=== PATIENT | female | born 1995 | race Caucasian/White ===

== ENCOUNTER 2024-04-08 13:15 | Outpatient (OUT) | payer BC, SELFPAY ==
[2024-04-08 15:24] LABS: HCG Quantitative 72391 mIU/mL
== END 2024-04-08 13:16 | disposition home or self-care (01) ==
DX: O20.9 Hemorrhage in early pregnancy, unspecified (principal)
CPT/HCPCS: 84702

== ENCOUNTER 2024-04-10 11:04 | Outpatient (OUT) | payer BC, SELFPAY ==
[2024-04-10 12:43] LABS: HCG Quantitative 82854 mIU/mL
== END 2024-04-10 11:05 | disposition home or self-care (01) ==
LOC: LAB 11:06
PROVIDERS: Visit Provider Obstetrics & Gynecology
DX: O20.9 Hemorrhage in early pregnancy, unspecified (principal)
CPT/HCPCS: 36415; 84702

== ENCOUNTER 2024-08-25 07:43 | Outpatient (OUT) | payer BC, SELFPAY ==
[2024-08-25 08:55] LABS: Hematocrit 33.2 % (36.0-48.0); Hemoglobin 11.1 g/dL (12.0-16.0)
[2024-08-25 09:16] LABS: Glucose 1 Hour 123 mg/dL (<130)
== END 2024-08-25 07:44 | disposition home or self-care (01) ==
LOC: LAB 07:44
PROVIDERS: Visit Provider Nurse Practitioner Women's Health
DX: O26.92 Pregnancy related conditions, unspecified, second trimester (principal)
CPT/HCPCS: 36415; 82950; 85014; 85018

== ENCOUNTER 2024-10-26 14:20 | Outpatient (OUT) | payer BC, SELFPAY ==
[2024-10-26 15:04] LABS: Basophils Percent Auto 0.2 % (0.2-2.0); Eosinophils Percent Auto 0.3 % (0.9-7.0); Hematocrit 31.3 % (36.0-48.0); Hemoglobin 10.8 g/dL (12.0-16.0); Immature Granulocytes Abs Auto 0.09 10^3/uL (0.00-0.03); Immature Granulocytes Pct Auto 0.8 % (0.0-0.5); Lymphocytes Absolute Auto 1.7 10^3/uL (1.2-3.8); Mean Corpuscular HGB Conc 34.5 g/dL (29.9-35.2); Mean Corpuscular Hemoglobin 28.6 pg (26.7-34.0); Mean Corpuscular Volume 82.8 fL (81.0-99.0); Mean Platelet Volume 11.9 fL (9.5-13.5); Monocytes Absolute Auto 0.8 10^3/uL (0.3-0.8); Monocytes Percent Auto 7.7 % (1.7-12.0); Neutrophils Absolute Auto 8.1 10^3/uL (1.4-6.5); Platelet Count 160 10^3/uL (150-450); Red Blood Count 3.78 10^6/uL (4.20-5.40); Red Cell Distribution Width 13.4 % (11.0-15.0); White Blood Count 10.8 10^3/uL (4.0-11.0)
[2024-10-26 15:15] LABS: Alanine Aminotransferase 18 U/L (14-59); Albumin Globulin Ratio 0.8; Albumin Level 2.8 g/dL (3.4-5.0); Alkaline Phosphatase 135 U/L (46-116); Anion Gap 11.3; Aspartate Amino Transferase 16 U/L (15-37); BUN Creatinine Ratio 10.1; Bilirubin Total 0.3 mg/dL (0.2-1.0); Calcium 8.6 mg/dL (8.5-10.1); Carbon Dioxide 26.5 mmol/L (21.0-32.0); Chloride 103 mmol/L (98-107); Estimated GFR (African America >60 (>=60 mL/min/1.73m^2); Estimated GFR (Non-African Ame >60 (>=60 mL/min/1.73m^2); Globulin 3.4 g/dL; Glucose 99 mg/dL (74-106); Potassium 3.8 mmol/L (3.5-5.1); Sodium 137 mmol/L (136-145); Total Protein 6.2 g/dL (6.4-8.2)
== END 2024-10-26 14:21 | disposition home or self-care (01) ==
LOC: LAB 14:21
PROVIDERS: Visit Provider Obstetrics & Gynecology
DX: Z34.83 Encounter for supervision of other normal pregnancy, third trimester (principal); D58.2 Other hemoglobinopathies; R42 Dizziness and giddiness
CPT/HCPCS: 36415; 80053; 85025

== ENCOUNTER 2025-04-30 13:53 | Emergency (ER) | payer BC, SELFPAY ==
[2025-04-30 13:57] VITALS: BP 115/61; PULSE 69; TEMP 37.3; O2SAT 98; BMI 22.6
--- OUTSIDE RECORDS SUMMARY | 2025-04-30 14:00 | XMS_ITS | Encounter Summary ---
Author Organization [facility] Address [facility] [place] [address] Care Team Providers Care Pumpman Name Role Phone Herminia Macdonald MD Primary Care Provider Simi Coppola JOURNALISM TEACHER.GAS PUMPING STATION OPERATOR Unavailable Lyndsey Bryson JOURNALISM TEACHER.GAS PUMPING STATION OPERATOR Unavailable [phone] Disha NeumannC Unavailable Verna Jean JOURNALISM TEACHER.GAS PUMPING STATION OPERATOR Unavailable London Corey-C Unavailable Bernadette Valenzuela JOURNALISM TEACHER.GAS PUMPING STATION OPERATOR Unavailable Bernadette Valenzuela APRN.GAS PUMPING STATION OPERATOR Unavailable [phone] Source Comments In the event this information is protected by the Federal Confidentiality of Alcohol and Drug AbusePatient Records regulations: The Federal rules restrict any use of the information to criminally investigate or prosecute any alcohol or drug abuse patient.[facility] Encounter Details Date Type Department Care Team (Late st Contact Info) Description 01/19/2022 Get Medical Advice Family Medicine [facility] [place] [address] Herminia Macdonald MD [address] [place] [address] Sertraline Social History Tobacco Use Types Packs/Day Years Used Date Smoking Tobacco: Never Smokeless Tobacco: Never Alcohol Use Standard Drinks/Week Comments Yes 0 (1 standard drink = 0.6 oz pur e alcohol) social, 1x/month Social Connection and Isolat ion Panel [NHANES] Answer Date Recorded In a typical week, how many times do you talk on the phone with family, friends, or neighbors? More than three times a week 10/07/2020 How often do you get togethe r with friends or relatives? Once a week 10/07/2020 How often do you attend chur ch or buddhism services? More than 4 times per year 10/07/2020 Do you belong to any clubs o r organizations such as presybeterian groups, unions, fraternal or athletic groups, or school groups? No 10/07/2020 How often do you attend meet ings of the clubs or organizations you belong to? Never 10/07/2020 Are you , , di vorced, , never , or living with a partner? 10/07/2020 [facility] Occupat ional Health - Occupational Stress Questionnaire Answer Date Recorded Do you feel stress - tense, restless, nervous, or anxious, or unable to sleep at night because your mind is troubled all the time - these days? Only a little 10/07/2020 Exercise Vital Sign Answer Date Recorde d On average, how many days pe r week do you engage in moderate to strenuous exercise (like a brisk walk)? 4 days 10/07/2020 On average, how many minutes do you engage in exercise at this level? 30 min 10/07/2020 Housing Stability Vital Sign Answer Doug e Recorded In the last 12 months, was t here a time when you were not able to pay the mortgage or rent on time? No 09/06/2021 In the last 12 months, how many places have you lived? 1 09/06/2021 In the last 12 months, was t here a time when you did not have a steady place to sleep or slept in a care home (including now)? No 09/06/2021 Area Deprivation Index Answer Date Rom rded National Score (1-100), lower number is lower ri sk Not on file 08/29/2020 State Score (1-10), lower number is lower risk N ot on file 08/29/2020 Data from: https://www.neighborhoodatlas.medicine.[facility]/. Last address used for calculation Not on file 08/29/2020 Comments No Sex and Gender Information Value Date Recorded Sex Assigned at Not on file Legal Sex Female 9:14 AM EST Gender Identity Not on file Sexual Orientation Not on file Occupation Industry Job Start Date Job End Date student Not on file Not on file Not on file Exercise- walk, gym- weights/elliptical Not on file N ot on file Not on file documented as of this encounter Functional Status * Are you deaf or do you have serious difficulty hearing? Answer Date of Assessment Author No 10/06/2015 10:45 AM Disha Newton APRN.GAS PUMPING STATION OPERATOR * Are you blind or do you have serious difficulty seeing, even when wearing glasses? Answer Date of Assessment Author No 10/06/2015 10:45 AM Disha Newton APRN.GAS PUMPING STATION OPERATOR * Do you have serious difficulty walking or climbing stairs? Answer Date of Assessment Author No 10/06/2015 10:45 AM Disha Newton APRN.GAS PUMPING STATION OPERATOR * Do you have difficulty dressing or bathing? Answer Date of Assessment Author No 10/06/2015 10:45 AM Disha Newton APRN.GAS PUMPING STATION OPERATOR * Because of a physical, mental, or emotional condition, do you have difficulty doing errands alone such as visiting a doctor's office or shopping? Answer Date of Assessment Author No 10/06/2015 10:45 AM Disha Newton APRN.GAS PUMPING STATION OPERATOR documented as of this encounter Mental Status * Because of a physical, mental, or emotional condition, do you have serious difficulty concentrating, remembering, or making decisions? Answer Entry Date Author No 10/06/2015 10:45 AM Disha Newton APRN.GAS PUMPING STATION OPERATOR documented in this encounter Plan of Treatment Not on file documented as of this encounter Visit Diagnoses Not on filedocumented in this encounter Care Teams Pumpman Relationship Specialty Start Date End Date Herminia Macdonald MD [address] [place] [address] PCP - General Family Medicine 09/08/21 Simi Coppola, JOURNALISM TEACHER.GAS PUMPING STATION OPERATOR [address] [place] [address] [facility] 08/30/24 09/24/24 Lyndsey Bryson, JOURNALISM TEACHER.GAS PUMPING STATION OPERATOR [address] [place] [address] [facility] 08/30/24 09/24/24 Disha Neumann PA-C [address] [place] [address] [facility] 08/30/24 09/24/24 Verna Jean, JOURNALISM TEACHER.GAS PUMPING STATION OPERATOR [address] [place] [address] [facility] 08/30/24 09/24/24 London Corey PA-C [address] [place] [address] [facility] 08/30/24 09/24/24 Bernadette Valenzuela, JOURNALISM TEACHER.GAS PUMPING STATION OPERATOR [address] [place] [address] [facility] 09/25/24 12/03/24 Bernadette Valenzuela, JOURNALISM TEACHER.GAS PUMPING STATION OPERATOR [address] [place] [address] [facility] 12/03/24 documented as of this encounter
--- OUTSIDE RECORDS SUMMARY | 2025-04-30 14:00 | XMS_ITS | Clinical Summary ---
Author Organization [facility] Address [address] [place] [address] Care Team Providers Care Real Estate Loan Processor Name Role Phone Unallocated, Noms Provider MD Primary Care Provi dom Allergies Active Allergy Reactions Criticality Noted Date Comments Cefaclor Unknown 02/06/2023 Nickel Unknown 04/14/2014 Medications GENERIC EXTERNAL MEDICATION Take 1 tablet by mouth Daily NatureMaid PNV folic acid/DHA 4 Active Active Problems Problem Noted Date Diagnosed Date GERD (gastroesophageal reflux disease) 3 Overview (02/12/2023): 02/2019: Takes Prevacid OTC as needed KIA (generalized anxiety disorder) 08/06/2019 Overview (02/12/2023): 09/2020: much improved on zoloft 100mg. Using Calm estephanie. School and home life are improved 08/2020: worsening sx, incr to zoloft 100mg 05/12: zoloft 50mg still working well 09/2019: significant improvement on zoloft 50mg, doing really well. Continue current dose. Hydroxyzine did not help 07/2019: Started Zoloft 50 mg. Continue hydroxyzine 25 mg as needed Resolved Problems Problem Noted Date Diagnosed Date Resolved Date Female infertility 09/08/2021 3 Family History Medical History Relation Name Comments Diabetes Father's Brother Breast cancer Mother's Sister Pancreatic cancer Paternal Grandmother No Known Problems Sister Relation Name Status Comments Father Alive Father's Brother Mother Alive Mother's Sister Paternal Grandmother Sister 1 sister Son Alive Social History Tobacco Use Types Packs/Day Years Used Date Smoking Tobacco: Never Smokeless Tobacco: Never Tobacco Cessation:Counseling Given: No Alcohol Use Standard Drinks/Week Comments Not Currently 0 (1 standard drink = 0.6 oz pure alcohol) caffeine intake : 1-2 cups per day ; coffee Humiliation, Afraid, Rape, and Kick questionnair e Answer Date Recorded Within the last year, have y ou been afraid of your partner or ex-partner? No 04/14/2024 Within the last year, have y ou been humiliated or emotionally abused in other ways by your partner or ex-partner? No Within the last year, have y ou been kicked, hit, slapped, or otherwise physically hurt by your partner or ex-partner? No 04/14/2024 Within the last year, have y ou been raped or forced to have any kind of sexual activity by your partner or ex-partner? No 04/14/2024 Social Connection and Isolat ion Panel [NHANES] Answer Date Recorded In a typical week, how many times do you talk on the phone with family, friends, or neighbors? More than three times a week 04/14/2024 How often do you get togethe r with friends or relatives? More than three times a week 04/14/2024 How often do you attend chur or jew services? More than 4 times per year 04/14/2024 Do you belong to any clubs o r organizations such as scientology groups, unions, fraternal or athletic groups, or school groups? Yes 04/14/2024 How often do you attend meet ings of the clubs or organizations you belong to? 1 to 4 times per year 04/14/2024 Are you , , di vorced, , never , or living with a partner? 04/14/2024 AUDIT-C Answer Date Recorded Q1: How often do you have a drink containing alc ohol? Monthly or less 04/14/2024 Q2: How many drinks containi ng alcohol do you have on a typical day when you are drinking? 1 or 2 04/14/2024 Q3: How often do you have si x or more drinks on one occasion? Never 04/14/2024 Overall Financial Resource Strain (CARDIA) Answe r Date Recorded How hard is it for you to pa y for the very basics like food, housing, medical care, and heating? Not hard at all 04/14/2024 PHQ-2 Answer Date Recorded Patient Health Questionnaire-2 Score 0 09/28/2024 [facility] of Occupat ional Health - Occupational Stress Questionnaire Answer Date Recorded Do you feel stress - tense, restless, nervous, or anxious, or unable to sleep at night because your mind is troubled all the time - these days? Only a little 04/14/2024 Exercise Vital Sign Answer Date Recorde d On average, how many days pe r week do you engage in moderate to strenuous exercise (like a brisk walk)? 7 days 04/14/2024 On average, how many minutes do you engage in exercise at this level? 60 min 04/14/2024 Hunger Vital Sign Answer Date Recorded Within the past 12 months, y ou worried that your food would run out before you got the money to buy more. Never true 04/14/20 24 Within the past 12 months, t he food you bought just didn't last and you didn't have money to get more. Never true 04/14/2024 PRAPARE - Transportation Answer Date Re corded In the past 12 months, has l ack of transportation kept you from medical appointments or from getting medications? No 03/24 In the past 12 months, has l ack of transportation kept you from meetings, work, or from getting things needed for daily living? No 04/14/2024 [place] Depression Scale Answer Date Recorded [place] Depression Scale Total 13 02/12/2023 The thought of harming myself has occurred to me . Never 02/12/2023 Housing Stability Vital Sign Answer Doug e Recorded In the last 12 months, was t here a time when you were not able to pay the mortgage or rent on time? No 04/14/2024 Number of Times Moved in the Last Year Not on fi le 04/14/2024 At any time in the past 12 m [facility], were you homeless or living in a usp (including now)? No 04/14/2024 Education Answer Date Recorded What is the highest level of school you have completed or the highest degree you have received? 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 Not on file Not on f ile Last Filed Vital Signs Vital Sign Reading Time Taken Comments Blood Pressure 110/70 01/05/2025 1:38 PM EDT Pulse - - Temperature - - Respiratory Rate - - Oxygen Saturation - - Inhaled Oxygen Concentration - - Weight 68 kg (150 lb) 01/05/2025 1:38 PM EDT Height 167.6 cm (5' 6 ) 01/17/2022 12:00 PM EDT Body Mass Index 24.21 01/17/2022 12:00 PM EDT Plan of Treatment Upcoming Encounters Date Type Department Care Team (Late st Contact Info) Description 07/13/2025 1:15 PM EDT Office Visit MARCIO YOUNG [address] ROMAN D [address] [phone] Rebecca Workman DO [address] [phone] Health Maintenance Due Date Last Done Comments Influenza Vaccine (#1) 2025 , 04/27/2021, 06/23/2020, Additional history exists Pap Smear 01/06/2028 01/05/2025, 07/12/2023 Cervical Cancer Screening 01/05/2030 HPV/Cotest 01/05/2030 01/05/2025, 06/24, 06/19/2022, Additional history exists Goals Goal Patient Goal Type Associated Problems Recent Progress Patient-Stated? Author Reminders Care Plan OB Reminders No Open Scheduling, Background Procedures Procedure Name Priority Date/Time Associated Diagnosis Comments THINPREP TIS PAP RFX HPV Routine 01/05/2025 12:00 AM EDT Screening for malignant neoplasm of cervix from Last 3 Months or Most Recently Relevant to Health Maintenance Results * THINPREP TIS PAP RFX HPV (01/05/2025 12:00 AM EDT) CLINICAL INFORMATION [facility] Comment:None given LMP [facility] Comment:NONE GIVEN PREV. PAP [facility] Comment:NONE GIVEN PREV. BX [facility] Comment:NONE GIVEN SOURCE [facility] Comment:None given STATEMENT OF ADEQUACY [facility] Comment: Satisfactory for evaluation. Endocervical/transformation zone component present. INTERPRETATION/RESUL T [facility] Comment: Cytology Results: Negative for intraepithelial lesion or malignancy. COMMENT [facility] Comment: This Pap test has been evaluated with computer assisted technology. CALENDER LET OFF HELPER [facility] Comment: JT PADILLA(ASCP) CT screening location: [facility], [address] [place] [address]. (ALWAYS MESSAGE) [facility] Comment: EXPLANATORY NOTE: The Pap is a screening test for cervical cancer. It is not a diagnostic test and is subject to false negative and false positive results. It is most reliable when a satisfactory sample, regularly obtained, is submitted with relevant clinical findings and history, and when the Pap result is evaluated along with historic and current clinical information. Swab 01/05/2025 01/06/2025 3:4 6 AM EDT Narrative Resulting Agency Comment Performing Organization Information Site ID: [id number] Name: [facility] Address: [address] [place] [address], [address] [place] [phone] Director: Rei Mccormack MD us Rebecca Workmna DO LAB CYTOLOGY ORDERABLES Fi nal Result [facility] from Last 3 Months or Most Recently Relevant to Health Maintenance Additional Health Concerns Active Problems Noted Date Diagnosed Date OB Reminders 04/15/2024 Insurance BCBS Care Teams Real Estate Loan Processor Relationship Specialty Start Date End Date Unallocated, Noms Provider, [address] [place], [place] [address] PCP - General 02/12/23
--- OUTSIDE RECORDS SUMMARY | 2025-04-30 14:00 | XMS_ITS | Encounter Summary ---
Author Organization [facility] Address [facility] [place] [address] Care Team Providers Care Reprint Sorter Name Role Phone Stephenie Castellon MD Unavailable [phone] Herminia Macdonald MD Primary Care Provider Simi Coppola ARTIFICIAL PEARL MAKER.CONCRETE PIPE MAKING MACHINE OPERATOR Unavailable Lyndsey Bryson ARTIFICIAL PEARL MAKER.CONCRETE PIPE MAKING MACHINE OPERATOR Unavailable [phone] Disha Neumann PA-C Unavailable Verna Jean ARTIFICIAL PEARL MAKER.CONCRETE PIPE MAKING MACHINE OPERATOR Unavailable London Corey PA-C Unavailable Bernadette Valenzuela ARTIFICIAL PEARL MAKER.CONCRETE PIPE MAKING MACHINE OPERATOR Unavailable Bernadette Valenzuela ARTIFICIAL PEARL MAKER.CONCRETE PIPE MAKING MACHINE OPERATOR Unavailable Source Comments In the event this information is protected by the Federal Confidentiality of Alcohol and Drug AbusePatient Records regulations: The Federal rules restrict any use of the information to criminally investigate or prosecute any alcohol or drug abuse patient.[facility] Encounter Details Date Type Department Care Team (Late st Contact Info) Description 10/05/2021 Patient Msg Reproductive Endocrinology Infertility [address] [place] [address] Fabiola Spear MD [address] [place] [address] Next Steps Social History Tobacco Use Types Packs/Day Years [...] 10/07/2020 How often do you attend chur or moravian services? More than 4 times per year 10/07/2020 Do you belong to any clubs o r organizations such as pentecostal groups, unions, fraternal or athletic groups, or school groups? No 10/07/2020 How often do you attend meet ings of the clubs or organizations you belong to? Never 10/07/2020 Are you , , di vorced, , never , or living with a partner? 10/07/2020 [facility] of Occupat ional Health - Occupational [...] place to sleep or slept in a intermediate (including now)? No 09/06/2021 Area Deprivation Index Answer Date Rom rded National Score (1-100), lower number is lower ri sk Not on file 08/29/2020 State Score (1-10), lower number is lower risk N ot on file 08/29/2020 Data from: https://www.neighborhoodatlas.medicine.[facility].edu/. Last address used for calculation Not on [...] N ot on file Not on file COVID-19 Exposure Response Date Recorded In the last month, have you been in contact with someone who was confirmed or suspected to have Coronavirus / COVID-19? No / Unsure 10/05/2021 8:50 AM EST documented as of this encounter Functional Status * Are you deaf or do you have serious difficulty hearing? Answer Date of Assessment Author No 10/06/2015 10:45 AM EST Disha Magallon APRN.CONCRETE PIPE MAKING MACHINE OPERATOR * Are you blind or do you have serious difficulty seeing, even when wearing glasses? Answer Date of Assessment Author No 10/06/2015 10:45 AM Disha Newton APRN.CONCRETE PIPE MAKING MACHINE OPERATOR * Do you have serious difficulty walking or climbing stairs? Answer Date of Assessment Author No 10/06/2015 10:45 AM EST Disha Magallon APRN.CONCRETE PIPE MAKING MACHINE OPERATOR * Do you have difficulty dressing or bathing? Answer Date of Assessment Author No 10/06/2015 10:45 AM EST Disha Magallon APRN.CONCRETE PIPE MAKING MACHINE OPERATOR * Because of a physical, mental, or emotional condition, do you have difficulty doing errands alone such as visiting a doctor's office or shopping? Answer Date of Assessment Author No 10/06/2015 10:45 AM EST Disha Magallon APRN.CONCRETE PIPE MAKING MACHINE OPERATOR documented as of this encounter Mental Status * Because of a physical, mental, or emotional condition, do you have serious difficulty concentrating, remembering, or making decisions? Answer Entry Date Author No 10/06/2015 10:45 AM Disha Newton APRN.CONCRETE PIPE MAKING MACHINE OPERATOR documented in this encounter Plan of Treatment Not on file documented as of this encounter Visit Diagnoses Not on filedocumented in this encounter Care Teams Reprint Sorter Relationship Specialty Start Date End Date Herminia Macdonald MD [address] [place] [address] PCP - General Family Medicine 09/08/21 Stephenie Castellon MD PCP Resident Family Medicine 03/22/21 01/15/22 Simi Coppola, ARTIFICIAL PEARL MAKER.CONCRETE PIPE MAKING MACHINE OPERATOR [address] [place] [address] Notch Machine Operator Family [facility] 08/30/24 09/24/24 Lyndsey Bryson, ARTIFICIAL PEARL MAKER.CONCRETE PIPE MAKING MACHINE OPERATOR [address] [place] [address] Notch Machine Operator Family [facility] 08/30/24 09/24/24 Disha Neumann PA-C [address] [place] [address] Notch Machine Operator Family [facility] 08/30/24 09/24/24 Verna Jean, ARTIFICIAL PEARL MAKER.CONCRETE PIPE MAKING MACHINE OPERATOR [address] [place] [address] [facility] 08/30/24 09/24/24 London Corey PA-C [address] [place] [address] Notch Machine Operator [facility] 08/30/24 09/24/24 Bernadette Valenzuela APRN.CONCRETE PIPE MAKING MACHINE OPERATOR [address] [place] [address] Notch Machine Operator 09/25/24 12/03/24 Bernadette Valenzuela APRN.CONCRETE PIPE MAKING MACHINE OPERATOR [address] [place] [address] Notch Machine Operator Family Medicine 12/03/24 documented as of this encounter
--- OUTSIDE RECORDS SUMMARY | 2025-04-30 14:00 | XMS_ITS | Encounter Summary ---
Author Organization [facility] Address [facility] [place] [address] Care Team Providers Care Director Of Admissions Name Role Phone Stephenie Castellon MD Unavailable [phone] Herminia Macdonald MD Primary Care Provider Simi Coppola NEWS CORRESPONDENT.UNIT ASSISTANT Unavailable Lyndsey Bryson NEWS CORRESPONDENT.UNIT ASSISTANT Unavailable [phone] Disha Neumann PA-C Unavailable Verna Jean NEWS CORRESPONDENT.UNIT ASSISTANT Unavailable London Corey PA-C Unavailable Bernadette Valenzuela NEWS CORRESPONDENT.UNIT ASSISTANT Unavailable Bernadette Valenzuela NEWS CORRESPONDENT.UNIT ASSISTANT Unavailable Source Comments In the event this information is protected by the Federal Confidentiality of Alcohol and Drug AbusePatient Records regulations: The Federal rules restrict any use of the information to criminally investigate or prosecute any alcohol or drug abuse patient.[facility] Encounter Details Date Type Department Care Team (Late st Contact Info) Description 11/01/2021 [facility] Get Medical Advice Reproductive Endocrinology Infertility [address] [place] [address] Fabiola Spear MD [address] [place] [address] Social History Tobacco Use Types Packs/Day Years [...] How often do you attend chur or jewish services? More than 4 times per year 10/07/2020 Do you belong to any clubs o r organizations such as samaritan groups, unions, fraternal or athletic groups, or school groups? No 10/07/2020 How often do you attend meet ings of the clubs or organizations you belong to? Never 10/07/2020 Are you , , di vorced, , never , or living with a partner? 10/07/2020 [facility] - Occupational [...] place to sleep or slept in a custodial (including now)? No 09/06/2021 Area Deprivation Index Answer Date Rom rded National Score (1-100), lower number is lower ri sk Not on file 08/29/2020 State Score (1-10), lower number is lower risk N ot on file 08/29/2020 Data from: https://www.neighborhoodatlas.medicine.[facility].edu/. Last address used for calculation Not on [...] No 10/06/2015 10:45 AM EST Disha Magallon APRN.UNIT ASSISTANT * Are you blind or do you have serious difficulty seeing, even when wearing glasses? Answer Date of Assessment Author No 10/06/2015 10:45 AM Disha Newton APRN.UNIT ASSISTANT * Do you have serious difficulty walking or climbing stairs? Answer Date of Assessment Author No 10/06/2015 10:45 AM EST Disha Magallon APRN.UNIT ASSISTANT * Do you have difficulty dressing or bathing? Answer Date of Assessment Author No 10/06/2015 10:45 AM EST Disha Magallon APRN.UNIT ASSISTANT * Because of a physical, mental, or emotional condition, do you have difficulty doing errands alone such as visiting a doctor's office or shopping? Answer Date of Assessment Author No 10/06/2015 10:45 AM EST Disha Magallon APRN.UNIT ASSISTANT documented as of this encounter Mental Status * Because of a physical, mental, or emotional condition, do you have serious difficulty concentrating, remembering, or making decisions? Answer Entry Date Author No 10/06/2015 10:45 AM EST Disha Magallon APRN.UNIT ASSISTANT documented in this encounter Miscellaneous Notes * Telephone Encounter - Dorie Ramos RN - 11/01/2021 8:08 AM EST See phone encounter Dorie Ramos RN November 01, 2021 8:08 AM documented in this encounter Plan of Treatment Not on file documented as of this encounter Visit Diagnoses Not on filedocumented in this encounter Care Teams Director Of Admissions Relationship Specialty Start Date End Date Herminia Macdonald MD [address] [place] [address] PCP - General Family Medicine 09/08/21 Stephenie Castellon MD PCP Resident Family Medicine 03/22/21 01/15/22 Simi Coppola APRN.UNIT ASSISTANT [address] [place] [address] Restaurant Crew Person Family Medicine 08/30/24 09/24/24 Lyndsey Bryson APRN.UNIT ASSISTANT [address] [place] [address] Restaurant Crew Person Family Medicine 08/30/24 09/24/24 Disha Neumann PA-C [address] [place] [address] [facility] Family Medicine 08/30/24 09/24/24 Verna Jean APRN.UNIT ASSISTANT [address] [place] [address] Restaurant Crew Person Family Medicine 08/30/24 09/24/24 London Corey PA-C [address] [place] [address] Restaurant Crew Person Family Medicine 08/30/24 09/24/24 Bernadette Valenzuela APRN.UNIT ASSISTANT [address] [place] [address] Restaurant Crew Person 09/25/24 12/03/24 Bernadette Valenzuela APRN.UNIT ASSISTANT [address] [place] [address] Restaurant Crew Person Family [facility] 12/03/24 documented as of this encounter
--- OUTSIDE RECORDS SUMMARY | 2025-04-30 14:00 | XMS_ITS | Encounter Summary ---
Author Organization [facility] Address [facility] [place] [address] Care Team Providers Care Taffy Puller Name Role Phone Herminia Macdonald MD Primary Care Provider Simi Coppola HIGH SCHOOL AUTO REPAIR TEACHER.DESOLDERER Unavailable Lyndsey Bryson HIGH SCHOOL AUTO REPAIR TEACHER.DESOLDERER Unavailable [phone] Disha Neumann-C Unavailable Verna Jean HIGH SCHOOL AUTO REPAIR TEACHER.DESOLDERER Unavailable London Corey-C Unavailable Bernadette Valenzuela HIGH SCHOOL AUTO REPAIR TEACHER.DESOLDERER Unavailable [phone] Bernadette Valenzuela APRN.DESOLDERER Unavailable [phone] Source Comments In the event this information is protected by the Federal Confidentiality of Alcohol and Drug AbusePatient Records regulations: The Federal rules restrict any use of the information to criminally investigate or prosecute any alcohol or drug abuse patient.[facility] Encounter Details Date Type Department Care Team (Late st Contact Info) Description 05/14/2022 Patient Msg Family Medicine [facility]iz[facility]et [address] [place] [address] Herminia Macdonald MD [address] [place] [address] PCP Update Social History Tobacco Use Types Packs/Day Years [...] often do you attend chur ch or confucianist services? More than 4 times per year 10/07/2020 Do you belong to any clubs o r organizations such as hoahaoism groups, unions, fraternal or athletic groups, or school groups? No 10/07/2020 How often do you attend meet ings of the clubs or organizations you belong to? Never 10/07/2020 Are you , , di vorced, , never , or living with a partner? 10/07/2020 [facility] Health - Occupational [...] place to sleep or slept in a halfway (including now)? No 09/06/2021 Area Deprivation Index Answer Date Rom rded National Score (1-100), lower number is lower ri sk Not on file 08/29/2020 State Score (1-10), lower number is lower risk N ot on file 08/29/2020 Data from: https://www.neighborhoodatlas.medicine.[facility]/. Last address used for calculation Not on [...] Author No 10/06/2015 10:45 AM Disha Newton APRN.DESOLDERER * Are you blind or do you have serious difficulty seeing, even when wearing glasses? Answer Date of Assessment Author No 10/06/2015 10:45 AM Disha Newton APRN.DESOLDERER * Do you have serious difficulty walking or climbing stairs? Answer Date of Assessment Author No 10/06/2015 10:45 AM Disha Newton APRN.DESOLDERER * Do you have difficulty dressing or bathing? Answer Date of Assessment Author No 10/06/2015 10:45 AM Disha Newton APRN.DESOLDERER * Because of a physical, mental, or emotional condition, do you have difficulty doing errands alone such as visiting a doctor's office or shopping? Answer Date of Assessment Author No 10/06/2015 10:45 AM Disha Newton APRN.DESOLDERER documented as of this encounter Mental Status * Because of a physical, mental, or emotional condition, do you have serious difficulty concentrating, remembering, or making decisions? Answer Entry Date Author No 10/06/2015 10:45 AM Disha Newton APRN.DESOLDERER documented in this encounter Plan of Treatment Not on file documented as of this encounter Visit Diagnoses Not on filedocumented in this encounter Care Teams Taffy Puller Relationship Specialty Start Date End Date Herminia Macdonald MD [address] [place] [address] PCP - General Family Medicine 09/08/21 Simi Coppola, HIGH SCHOOL AUTO REPAIR TEACHER.DESOLDERER [address] [place] [address] [employer] [facility] 08/30/24 09/24/24 Lyndsey Bryson, HIGH SCHOOL AUTO REPAIR TEACHER.DESOLDERER [address] [place] [address] [facility] 08/30/24 09/24/24 Disha Neumann PA-C [address] [place] [address] [facility] 08/30/24 09/24/24 Verna Jean, HIGH SCHOOL AUTO REPAIR TEACHER.DESOLDERER [address] [place] [address] [facility] 08/30/24 09/24/24 London Corey PA-C [address] [place] [address] [facility] 08/30/24 09/24/24 Bernadette Valenzuela, HIGH SCHOOL AUTO REPAIR TEACHER.DESOLDERER [address] [place] [address] [facility] 09/25/24 12/03/24 Bernadette Valenzuela, HIGH SCHOOL AUTO REPAIR TEACHER.DESOLDERER [address] [place] [address] [facility] 12/03/24 documented as of this encounter
--- OUTSIDE RECORDS SUMMARY | 2025-04-30 14:00 | XMS_ITS | Encounter Summary ---
Author Organization [facility] Address [facility] [place] [address] Care Team Providers Care Night Filler Name Role Phone Do Castillo MD Unavailable [phone] Ric Ocampo MD Primary Care Provider [phone] Gracie Zavala MD Unavailable [phone] Rm Chavez MD Primary Care Provider [phone] Stephenie Castellon MD Unavailable Marques Márquez MD, Carl Primary Care Provider [phone] Herminia Macdonald MD Primary Care Provider [phone] Simi Coppola ROOM SERVICE BELL[employer].EXPEDITIONARY FORCE COMBAT SKILLS Unavailable Lyndsey Bryson ROOM SERVICE [employer].EXPEDITIONARY FORCE COMB[employer] SKILLS Unavailable [phone] Disha Neumann PA-C Unavailable Verna Jean ROOM SERVICE [employer].EXPEDITIONARY FORCE COMB[employer] SKILLS Unavailable London Corey-C Unavailable [phone] Bernadette Valenzuela ROOM SERVICE [employer].EXPEDITIONARY FORCE COMBAT SKILLS Unavailable [phone] Bernadette Valenzuela ROOM SERVICE [employer].EXPEDITIONARY FORCE COMBAT SKILLS Unavailable [phone] Source Comments In the event this information is protected by the Federal Confidentiality of Alcohol and Drug AbusePatient Records regulations: The Federal rules restrict any use of the information to criminally investigate or prosecute any alcohol or drug abuse patient.[facility] Encounter Details Date Type Department Care Team (Late st Contact Info) Description 06/23/2019 Patient Msg Family Practice [address] [place] [id number] Do Castillo MD [address] [place] [address] Normal Lab Results Social History Tobacco Use Types Packs/Day Years Used Date Smoking Tobacco: Never Smokeless Tobacco: Never Alcohol Use Standard Drinks/Week Comments Yes 0 (1 standard drink = 0.6 oz pur e alcohol) social, 1x/month Comments No Sex and Gender Information Value [...] Author No 10/06/2015 10:45 AM Disha Newton APRN.EXPEDITIONARY FORCE COMBAT SKILLS * Are you blind or do you have serious difficulty seeing, even when wearing glasses? Answer Date of Assessment Author No 10/06/2015 10:45 AM Disha Newton APRN.EXPEDITIONARY FORCE COMBAT SKILLS * Do you have serious difficulty walking or climbing stairs? Answer Date of Assessment Author No 10/06/2015 10:45 AM Disha Newton APRN.EXPEDITIONARY FORCE COMBAT SKILLS * Do you have difficulty dressing or bathing? Answer Date of Assessment Author No 10/06/2015 10:45 AM Disha Newton APRN.EXPEDITIONARY FORCE COMBAT SKILLS * Because of a physical, mental, or emotional condition, do you have difficulty doing errands alone such as visiting a doctor's office or shopping? Answer Date of Assessment Author No 10/06/2015 10:45 AM Disha Newton APRN.EXPEDITIONARY FORCE COMBAT SKILLS documented as of this encounter Mental Status * Because of a physical, mental, or emotional condition, do you have serious difficulty concentrating, remembering, or making decisions? Answer Entry Date Author No 10/06/2015 10:45 AM Disha Newton APRN.EXPEDITIONARY FORCE COMBAT SKILLS documented in this encounter Plan of Treatment Not on file documented as of this encounter Visit Diagnoses Not on filedocumented in this encounter Care Teams Night Filler Relationship Specialty [place] [address] [place] [address] PCP - General Family Medicine 06/19/19 06/29/19 [place] [address] [place], [place] [address] PCP - General Family Medicine 06/30/19 03/21/21 [place] [address] [place], [place] [address] PCP - General Family Medicine 03/22/21 09/07/21 Herminia Macdonald MD [address] [place] [address] PCP - General Family Medicine 09/08/21 Do Castillo MD PCP Resident Family Medicine 06/19/19 06/29/19 [place] [address] [place] [address] PCP Resident Family Medicine 06/30/19 03/22/21 [place] [address] [place] [address] PCP Resident Family Medicine 03/22/21 01/15/22 Simi Coppola ROOM SERVICE [employer].EXPEDITIONARY [employer] COMB[employer]ILLS [address] [place] [address] Buffer Operator Family Medicine 08/30/24 09/24/24 Lyndsey Bryson, ROOM SERVICE [employer]LL[employer].EXPEDITIONARY [employer] COMB[employer] SKILLS [address] [place] [address] Buffer Operator Family Medicine 08/30/24 09/24/24 Disha Neumann PA-C [address] [place] [address] Buffer Operator Family [facility] 08/30/24 09/24/24 Verna Jean, ROOM SERVICE BELLHOP.EXPEDITIONARY FORCE COMBAT SKILLS [address] [place] [address] Buffer Operator Family [facility] 08/30/24 09/24/24 London Corey PA-C [address] [place] [address] Buffer Operator Family Medicine 08/30/24 09/24/24 Bernadette Valenzuela, ROOM SERVICE [employer].EXPEDITIONARY [employer] COMBAT SKILLS [address] [place] [address] Buffer Operator 09/25/24 12/03/24 Bernadette Valenzuela, ZIGGY.EXPEDITIONARY FORCE COMBAT SKILLS [address] [place] [address] Buffer Operator Family Medicine 12/03/24 documented as of this encounter
--- OUTSIDE RECORDS SUMMARY | 2025-04-30 14:01 | XMS_ITS | Clinical Summary ---
Author Organization [facility] Address [facility] [place] [address] Care Team Providers Care Shredder Tender Peat Name Role Phone Herminia Macdonald MD Primary Care Provider Bernadette Valenzuela APRN.DIRECTOR OF ONLINE EDUCATION Unavailable [phone] Allergies Active Allergy Reactions Criticality Noted Date Comments Cefaclor Hives,Vomiting,Unknown 06/05/2007 Nickel Unknown 04/14/2014 Medications lansoprazole (PREVACID) 15 mg capsule Take 15 mg by mouth once daily as needed. Active sertraline (ZOLOFT) 25 mg tabletIndication s:KIA (generalized anxiety disorder) Take 1 tablet by mouth once daily. 45 tablet 1 09/08/2021 Active sertraline (ZOLOFT) 100 mg tablet Take 1 tablet by mouth once daily. Take with 25 mg for a total of 125 mg daily. 90 tablet 1 09/22/2021 Active Active Problems Problem Noted Date Diagnosed Date Female infertility 09/08/2021 KIA (generalized anxiety disorder) 08/06/2019 Overview (10/08/2020): 09/2020: much improved on zoloft 100mg. Using Calm estephanie. School and home life are improved 08/2020: worsening sx, incr to zoloft 100mg 05/12: zoloft 50mg still working well 09/2019: significant improvement on zoloft 50mg, doing really well. Continue current dose. Hydroxyzine did not help 07/2019: Started Zoloft 50 mg. Continue hydroxyzine 25 mg as needed GERD (gastroesophageal reflux disease) Overview (06/22/2019): 02/2019: Takes Prevacid OTC as needed Resolved Problems Problem Noted Date Diagnosed Date Resolved Date Parotitis, acute 02/06/2021 09/08/2021 Ruptured ovarian cyst 05/11/20202020 Overview (05/11/2020): bilateral ovarian cysts noted 05/08/20, presented likely with ruptured cyst and abd pain. Also ?gallbladder wall thickening BENIGN MELANOCYTIC NEVI 06/05/200705/25 ACNE VULGARIS 06/05/2007 06/22/2019 DERMATITIS 06/05/2007 06/19/2019 Immunizations Immunization Administration Dates Next Due hepatitis B (HepB) vaccine, 3-dose series, age 20+ yr (ENGERIX-B, RECOMBIVAX HB) 11/19/2019,09/09/2019,07/28/2019 human papillomavirus (HPV9) vaccine, 9 valent (GARDASIL 9) 02/20/2018,09/07/2015,06/01/2015 influenza (IIV3) vaccine, ag e 6 mo - 64 yr, trivalent (AFLURIA, FLULAVAL, FLUVIRIN, FLUZONE) 06/23/2020 influenza (IIV4) vaccine, ag e 6 mo - 64 yr, quadrivalent (AFLURIA, FLULAVAL, FLUZONE) 06/19/2019 influenza (IIV4) vaccine, ag e 6 mo - 64 yr, quadrivalent, PF (AFLURIA, FLUARIX, FLULAVAL, FLUZONE) 04/27/2021,06/22/2020 influenza vaccine, unspecified formulation 06/24,06/22/2016 tetanus diphtheria pertussis (Tdap) vaccine, age 7+ yr (ADACEL, BOOSTRIX) 06/30/2019 Family History Medical History Relation Comments None Father Breast Cancer Maternal Aunt Hearing Loss Maternal Grandfather Arthritis Maternal Grandmother Allergies Mother endometriosis Mother Diabetes Paternal Aunt Cancer Paternal Grandmother pancreas None Sister 2 Colon Cancer No Family History Relation Status Comments Brother Alive Father Alive Maternal Aunt Maternal Grandfather Alive Maternal Grandmother Alive Mother Alive Paternal Aunt Paternal Grandfather Alive Paternal Grandmother Alive Sister 1 Alive Sister 2 Alive Sister 3 Alive Social History Tobacco Use Types Packs/Day Years Used Date Smoking Tobacco: Never Smokeless Tobacco: Never Tobacco Cessation:Counseling Given: Yes Alcohol Use Standard Drinks/Week Comments Yes 0 [...] often do you attend chur ch or scientologist services? More than 4 times per year 10/07/2020 Do you belong to any clubs o r organizations such as baptism groups, unions, fraternal or athletic groups, or school groups? No 10/07/2020 How often do you attend meet ings of the clubs or organizations you belong to? Never 10/07/2020 Are you , , di vorced, , never , or living with a partner? 10/07/2020 [facility] Occupat ional Health - Occupational Stress Questionnaire [...] place to sleep or slept in a skilled nursing (including now)? No 09/06/2021 Area Deprivation Index Answer Date Rom rded National Score (1-100), lower number is lower ri sk Not on file 08/29/2020 State Score (1-10), lower number is lower risk N ot on file 08/29/2020 Data from: https://www.neighborhoodatlas.medicine.[facility].edu/. Last address used for calculation [...] N ot on file Not on file Last Filed Vital Signs Vital Sign Reading Time Taken Comments Blood Pressure 109/53 10/05/2021 8:56 AM EST Pulse 67 10/05/2021 8:56 AM EST Temperature 37.3 C (99.2 F) 02/02/2021 2:21 PM EDT Respiratory Rate 16 02/02/2021 2:21 PM EDT Oxygen Saturation 99% 09/08/2021 10:15 AM EST Inhaled Oxygen Concentration - - Weight 64.9 kg (143 lb) 10/05/2021 8:56 AM EST Height 167.6 cm (5' 6 ) 10/05/2021 8:56 AM EST Body Mass Index 23.08 10/05/2021 8:56 AM EST Plan of Treatment Health Maintenance Due Date Last Done Comments Anxiety Screening 2013 Depression Screening 2013 HIV Screening 2013 Hepatitis C Screening 2013 Cervical Cancer Screening 02/15/2020 02/14/2017, Influenza Vaccine (#1) 2025 , 06/23/2020, 06/22/2020, Additional history exists DTaP,Tdap,Td Vaccine (2 - Td or Tdap) 06/30/2029 06/30/2019 Hepatitis B Vaccine Completed 11/19/2019, 09/09/2019, 07/28/2019 Procedures Procedure Name Priority Date/Time Associated Diagnosis Comments PAP FLUID CERVICAL SCREENING Routine 02/14/2017 3:32 PM EDT Cervical cancer screening from Last 3 Months or Most Recently Relevant to Health Maintenance Insurance [place] [employer] Care Teams Shredder Tender Peat Relationship Specialty Start Date End Date Herminia Macdonald MD [address] [place] [address] PCP - General Family Medicine 09/08/21 Bernadette Valenzuela APRN.CNP [address] [place] [address] [facility] 12/03/24
--- OUTSIDE RECORDS SUMMARY | 2025-04-30 14:01 | XMS_ITS | Encounter Summary ---
Author Organization [facility] Address [address] [place] [address] Care Team Providers Care Host/Hostess Head Name Role Phone Unallocated, Noms Provider Primary Care Provi dom Encounter Details Date Type Department Care Team (Late st Contact Info) Description 06/11/2023 Abstract MARCIO YOUNG [address] [facility] [address] [place] [address] Beatriz Bolton MD [address] [facility] [address] [place] [address] Social History Tobacco Use Types Packs/Day Years Used Date Smoking Tobacco: Never Smokeless Tobacco: Never Alcohol Use Standard Drinks/Week Comments Never 0 (1 standard drink = 0.6 oz pure alcohol) caffeine intake : 1-2 cups per day ; coffee [place] Depression Scale Answer Date Recorded [place] Depression Scale Total 13 02/12/2023 The thought of harming myself has occurred to me . Never 02/12/2023 Education Answer Date Recorded What is the highest level of school you have completed or the highest degree you have received? High school graduate 02/06/2023 Comments Unknown Sex and Gender Information Value Date Recorded Sex Assigned at Female 02/12/2023 11:55 AM EDT Legal Sex Female 11:15 PM EDT Gender Identity Not on file Sexual Orientation Not on file documented as of this encounter Plan of Treatment Upcoming Encounters Date Type Department Care Team (Late st Contact Info) Description 07/13/2025 1:15 PM EDT Office Visit MARCIO Helenanelly YOUNG [address] [address] Rebecca Workman DO [address] [phone] documented as of this encounter Visit Diagnoses Not on filedocumented in this encounter Care Teams Host/Hostess Head Relationship Specialty Start Date End Date Unallocated, Nomadrien Torres MD [address] [place] [address] PCP - General 02/12/23 documented as of this encounter
--- OUTSIDE RECORDS SUMMARY | 2025-04-30 14:01 | XMS_ITS | Encounter Summary ---
Author Organization [facility] Address [address] [place] [address] Care Team Providers Care District Leader Name Role Phone Unallocated, Noms Provider Primary Care Provi dom Encounter Details Date Type Department Care Team (Late st Contact Info) Description 04/06/2024 Orders Only [facility] [address] ROM[place] D [facility] [place] [address] [place] [phone] Andree Simon MA Bleeding in early ([facility]) Social History Tobacco Use Types Packs/Day Years Used Date Smoking Tobacco: Never Smokeless Tobacco: Never Alcohol Use Standard Drinks/Week Comments Never 0 (1 standard drink = 0.6 oz pure alcohol) caffeine intake : 1-2 cups per day ; coffee [place] Depression Scale Answer Date Recorded [place] Depression Scale Total 13 02/12/2023 The thought of harming myself has occurred to me . Never 02/12/2023 Education Answer Date Recorded What is the highest level of school you have completed or the highest degree you have received? High school graduate 02/06/2023 Comments No Sex and Gender Information Value Date Recorded Sex Assigned at Female 02/12/2023 11:55 AM EDT Legal Sex Female 11:15 PM EDT Gender Identity Not on file Sexual Orientation Not on file documented as of this encounter Plan of Treatment Upcoming Encounters Date Type Department Care Team (Late st Contact Info) Description 07/13/2025 1:15 PM EDT Office Visit [facility] [address] ROM[address] [phone] Rebecca Workman DO [address] [phone] Scheduled Orders Name Type Priority Associated Diagnoses Orde r Schedule hCG, quantitative Lab Routine Bleeding in early (HHS-HCC) Expected: 04/06/2024 (Approximate), Expires: 04/06/2025 hCG, quantitative Lab Routine Bleeding in early (HHS-HCC) Expected: 04/08/2024 (Approximate), Expires: 04/06/2025 hCG, quantitative Lab Routine Bleeding in early (HHS-HCC) Expected: 04/08/2024 (Approximate), Expires: 04/08/2025 hCG, quantitative Lab Routine Bleeding in early (HHS-HCC) Expected: 04/10/2024 (Approximate), Expires: 04/08/2025 documented as of this encounter Visit Diagnoses Diagnosis Bleeding in early (HHS-HCC) Unspecified hemorrhage in early , unspecified as to episode of care documented in this encounter Care Teams District Leader Relationship Specialty Start Date End Date Unallocated, Noms Provider, [address] [place] [address] PCP - General 02/12/23 documented as of this encounter
--- OUTSIDE RECORDS SUMMARY | 2025-04-30 14:01 | XMS_ITS | Encounter Summary ---
Author Organization [facility] Address [facility] [place] [address] Care Team Providers Care Machine Plug Shaper Name Role Phone Gracie Zavala MD Unavailable [phone] Rm Chavez MD Primary Care Provider [phone] Stephenie Castellon MD Unavailable Marques Márquez MD, Carl Primary Care Provider [phone] Herminia Macdonald MD Primary Care Provider Simi Coppola MANAGER HOSPITAL.FONDANT MACHINE OPERATOR Unavailable Lyndsey Bryson MANAGER HOSPITAL.FONDANT MACHINE OPERATOR Unavailable [phone] Disha Neumann PA-C Unavailable Verna Jean MANAGER HOSPITAL.FONDANT MACHINE OPERATOR Unavailable London Corey-C Unavailable Bernadette Valenzuela MANAGER HOSPITAL.FONDANT MACHINE OPERATOR Unavailable Bernadette Valenzuela MANAGER HOSPITAL.FONDANT MACHINE OPERATOR Unavailable [phone] Source Comments In the event this information is protected by the Federal Confidentiality of Alcohol and Drug AbusePatient Records regulations: The Federal rules restrict any use of the information to criminally investigate or prosecute any alcohol or drug abuse patient.[facility] Encounter Details Date Type Department Care Team (Late st Contact Info) Description 04/06/2020 Get Medical Advice Family [facility] [address] [place] [address] [place] [address] [place] [address] RE: Non-Urgent Medical Question Social History Tobacco Use Types Packs/Day Years [...] Author No 10/06/2015 10:45 AM Disha Newton APRN.FONDANT MACHINE OPERATOR * Are you blind or do you have serious difficulty seeing, even when wearing glasses? Answer Date of Assessment Author No 10/06/2015 10:45 AM Disha Newton APRN.FONDANT MACHINE OPERATOR * Do you have serious difficulty walking or climbing stairs? Answer Date of Assessment Author No 10/06/2015 10:45 AM Disha Newton APRN.FONDANT MACHINE OPERATOR * Do you have difficulty dressing or bathing? Answer Date of Assessment Author No 10/06/2015 10:45 AM Disha Newton APRN.CNP * Because of a physical, mental, or emotional condition, do you have difficulty doing errands alone such as visiting a doctor's office or shopping? Answer Date of Assessment Author No 10/06/2015 10:45 AM Disha Newton APRN.FONDANT MACHINE OPERATOR documented as of this encounter Mental Status * Because of a physical, mental, or emotional condition, do you have serious difficulty concentrating, remembering, or making decisions? Answer Entry Date Author No 10/06/2015 10:45 AM Disha Newton APRN.FONDANT MACHINE OPERATOR documented in this encounter Plan of Treatment Not on file documented as of this encounter Visit Diagnoses Not on filedocumented in this encounter Care Teams Machine Plug Shaper Relationship Specialty [place] [address] [place] [address] PCP - General Family Medicine 06/30/19 03/21/[address] [place] [address] [place] [address] PCP - General Family Medicine 03/22/21 09/07/21 Herminia Macdonald MD [address] [place] [address] PCP - General Family Medicine 09/08/21 [place] [address] [place] [address] PCP Resident Family Medicine 06/30/19 03/22/21 [place] [address] [place] [address] PCP Resident Family Medicine 03/22/21 01/15/22 Simi Coppola APRN.FONDANT MACHINE OPERATOR [address] [place] [address] Sales Research Analyst Family Medicine 08/30/24 09/24/24 Lyndsey Bryson APRN.FONDANT MACHINE OPERATOR [address] [place] [address] Sales Research Analyst Family Medicine 08/30/24 09/24/24 Disha Neumann PA-C [address] [place] [address] Sales Research Analyst Family Medicine 08/30/24 09/24/24 Verna Jean APRN.FONDANT MACHINE OPERATOR [address] [place] [address] Sales Research Analyst Family Medicine 08/30/24 09/24/24 London Corey PA-C [address] [place] [address] [place] [address] Sales Research Analyst [facility] 08/30/24 09/24/24 Bernadette Valenzuela APRN.FONDANT MACHINE OPERATOR [address] [place] [address] Sales Research Analyst 09/25/24 12/03/24 Bernadette Valenzuela APRN.FONDANT MACHINE OPERATOR [address] [place] [address] Sales Research Analyst [facility] 12/03/24 documented as of this encounter
--- OUTSIDE RECORDS SUMMARY | 2025-04-30 14:01 | XMS_ITS | Encounter Summary ---
Author Organization [facility] Address [facility] [place] [address] Care Team Providers Care Sports Nutritionist Name Role Phone Gracie Zavala MD Unavailable [phone] Rm Chavez MD Primary Care Provider [phone] Stephenie Castellon MD Unavailable Marques Márquez MD, Carl Primary Care Provider [phone] Herminia Macdonald MD Primary Care Provider Simi Coppola SUPERVISOR SMOKE CONTROL.FRENCH PROFESSOR Unavailable Lyndsey Bryson SUPERVISOR SMOKE CONTROL.FRENCH PROFESSOR Unavailable [phone] Disha Neumann PA-C Unavailable Verna Jean SUPERVISOR SMOKE CONTROL.FRENCH PROFESSOR Unavailable London Corey-C Unavailable Bernadette Valenzuela SUPERVISOR SMOKE CONTROL.FRENCH PROFESSOR Unavailable Bernadette Valenzuela SUPERVISOR SMOKE CONTROL.FRENCH PROFESSOR Unavailable [phone] Source Comments In the event this information is protected by the Federal Confidentiality of Alcohol and Drug AbusePatient Records regulations: The Federal rules restrict any use of the information to criminally investigate or prosecute any alcohol or drug abuse patient.[facility] Encounter Details Date Type Department Care Team (Late st Contact Info) Description 12/23/2019 Get Medical Advice Family [facility] [address] [place] [address] [place] [address] [place] [address] RE: Non-Urgent Medical Question Social History Tobacco [...] Author No 10/06/2015 10:45 AM Disha Newton APRN.FRENCH PROFESSOR * Are you blind or do you have serious difficulty seeing, even when wearing glasses? Answer Date of Assessment Author No 10/06/2015 10:45 AM Disha Newton APRN.FRENCH PROFESSOR * Do you have serious difficulty walking or climbing stairs? Answer Date of Assessment Author No 10/06/2015 10:45 AM Disha Newton APRN.FRENCH PROFESSOR * Do you have difficulty dressing or bathing? Answer Date of Assessment Author No 10/06/2015 10:45 AM Disha Newton APRN.CNP * Because of a physical, mental, or emotional condition, do you have difficulty doing errands alone such as visiting a doctor's office or shopping? Answer Date of Assessment Author No 10/06/2015 10:45 AM Disha Newton APRN.FRENCH PROFESSOR documented as of this encounter Mental Status * Because of a physical, mental, or emotional condition, do you have serious difficulty concentrating, remembering, or making decisions? Answer Entry Date Author No 10/06/2015 10:45 AM Disha Newton APRN.FRENCH PROFESSOR documented in this encounter Miscellaneous Notes * Telephone Encounter - Gracie Zavala (Res) - 02/12/2020 11:05 AM EDT Thanks so much for your help with this. Gracie Zavala MD 02/12/2020 Received below message: Yue Garcia ([facility]) and I (Patient Financial Services) have checked on changing the ICD-10 code forlabs drawn 06/20/19. ??The coding has been reviewed by both with the same conclusion that tests are coded correctly for reasons they were drawn. ?? It was stated that yearly annual wellness visit doesnot include the labs ordered and that insurance may not cover even if coding is changed. I called Julia Islas and left voice message that coders state labs done 06/20/19 are coded correctly. ??Her options are to contact patient financial services at ??[phone] and ask for a expedited review with coding change of Z00.00. ??Her next step would then be to ask for appeal with her insurance. ??Please see me or Yue with any questions. Ruma Santos documented in this encounter Plan of Treatment Not on file documented as of this encounter Visit Diagnoses Not on filedocumented in this encounter Care Teams Sports Nutritionist Relationship Specialty [place] [address] [place] [address] PCP - General Family Medicine 06/30/19 03/21/[address] [place] [address] [place] [address] PCP - General Family Medicine 03/22/21 09/07/21 Herminia Macdonald MD [address] [place] [address] PCP - General Family Medicine 09/08/21 [place] [address] [place] [address] PCP Resident Family Medicine 06/30/19 03/22/21 [place] [address] [place] [address] PCP Resident Family Medicine 03/22/21 01/15/22 Simi Coppola, SUPERVISOR SMOKE CONTROL.FRENCH PROFESSOR [address] [place] [address] Social Work Nurse Family Medicine 08/30/24 09/24/24 Lyndsey Bryson, SUPERVISOR SMOKE CONTROL.FRENCH PROFESSOR [address] [place] [address] Social Work Nurse Family Medicine 08/30/24 09/24/24 Disha Neumann PA-C [address] [place] [address] Social Work Nurse Family Medicine 08/30/24 09/24/24 Verna Jean, SUPERVISOR SMOKE CONTROL.FRENCH PROFESSOR [address] [place] [address] Social Work Nurse Family Medicine 08/30/24 09/24/24 London Corey PA-C [address] [place] [address] Social Work Nurse Family Medicine 08/30/24 09/24/24 Bernadette Valenzuela APRN.FRENCH PROFESSOR [address] [place] [address] Social Work Nurse 09/25/24 12/03/24 Bernadette Valenzuela APRN.FRENCH PROFESSOR [address] [place] [address] Social Work Nurse Family Medicine 12/03/24 documented as of this encounter
--- OUTSIDE RECORDS SUMMARY | 2025-04-30 14:01 | XMS_ITS | Encounter Summary ---
Author Organization [facility] Address [address] [place] [address] Care Team Providers Care Laboratory Clerk Name Role Phone Unallocated, Noms Provider Primary Care Provi dom Encounter Details Date Type Department Care Team (Late st Contact Info) Description 05/21/2023 Abstract [facility] [address] [facility] [address] [place] [phone] Beatriz Bolton MD [address] [facility] [address] [place] [address] Social History Tobacco Use Types Packs/Day Years Used Date Smoking Tobacco: Never Smokeless Tobacco: Never Alcohol Use Standard Drinks/Week Comments Never 0 (1 standard drink = 0.6 oz pur e alcohol) [place] Depression Scale Answer Date Recorded [place] Depression Scale Total 13 02/12/2023 The thought [...] 07/13/2025 1:15 PM EDT Office Visit [facility] [address] [address] Rebecca Workman DO [address] [address] documented as of this encounter Visit Diagnoses Not on filedocumented in this encounter Care Teams Laboratory Clerk Relationship Specialty Start Date End Date Unallocated, Marcio Torres MD [address] [place] [address] PCP - General 02/12/23 documented as of this encounter
--- OUTSIDE RECORDS SUMMARY | 2025-04-30 14:01 | XMS_ITS | Encounter Summary ---
Author Organization [facility] Address [facility] [place] [address] Care Team Providers Care Log Scaler Name Role Phone Gracie Zavala MD Unavailable [phone] Rm Chavez MD Primary Care Provider [phone] Stephenie Castellon MD Unavailable Marques Márquez MD, Carl Primary Care Provider [phone] Herminia Macdonald MD Primary Care Provider Simi Coppola DIRECTOR OF UNDERGRADUATE ADMISSIONS.NUTS AND BOLTS ASSEMBLER Unavailable Lyndsey Bryson DIRECTOR OF UNDERGRADUATE ADMISSIONS.NUTS AND BOLTS ASSEMBLER Unavailable [phone] Disha Neumann PA-C Unavailable Verna Jean DIRECTOR OF UNDERGRADUATE ADMISSIONS.NUTS AND BOLTS ASSEMBLER Unavailable London Corey-C Unavailable Bernadette Valenzuela DIRECTOR OF UNDERGRADUATE ADMISSIONS.NUTS AND BOLTS ASSEMBLER Unavailable Bernadette Valenzuela DIRECTOR OF UNDERGRADUATE ADMISSIONS.NUTS AND BOLTS ASSEMBLER Unavailable [phone] Source Comments In the event this information is protected by the Federal Confidentiality of Alcohol and Drug AbusePatient Records regulations: The Federal rules restrict any use of the information to criminally investigate or prosecute any alcohol or drug abuse patient.[facility] Encounter Details Date Type Department Care Team (Late st Contact Info) Description 02/07/2020 Get Medical Advice Family [facility] [address] [place] [address] [place] [address] [place] [address] RE: Non-Urgent Medical Question Social History Tobacco [...] Author No 10/06/2015 10:45 AM Disha Newton APRN.NUTS AND BOLTS ASSEMBLER * Are you blind or do you have serious difficulty seeing, even when wearing glasses? Answer Date of Assessment Author No 10/06/2015 10:45 AM Disha Newton APRN.NUTS AND BOLTS ASSEMBLER * Do you have serious difficulty walking or climbing stairs? Answer Date of Assessment Author No 10/06/2015 10:45 AM Disha Newton APRN.NUTS AND BOLTS ASSEMBLER * Do you have difficulty dressing or bathing? Answer Date of Assessment Author No 10/06/2015 10:45 AM Disha Newton APRN.CNP * Because of a physical, mental, or emotional condition, do you have difficulty doing errands alone such as visiting a doctor's office or shopping? Answer Date of Assessment Author No 10/06/2015 10:45 AM Disha Newton APRN.NUTS AND BOLTS ASSEMBLER documented as of this encounter Mental Status * Because of a physical, mental, or emotional condition, do you have serious difficulty concentrating, remembering, or making decisions? Answer Entry Date Author No 10/06/2015 10:45 AM Disha Newton APRN.NUTS AND BOLTS ASSEMBLER documented in this encounter Plan of Treatment Not on file documented as of this encounter Visit Diagnoses Not on filedocumented in this encounter Care Teams Log Scaler Relationship Specialty [place] [address] [place] [address] PCP - General Family Medicine 06/30/19 03/21/21 [place] [address] [place] [address] PCP - General Family Medicine 03/22/21 09/07/21 Herminia Macdonald MD [address] [place] [address] PCP - General Family Medicine 09/08/21 [place] [address] [place] [address] PCP Resident Family Medicine 06/30/19 03/22/21 [place] [address] [place] [address] PCP Resident Family Medicine 03/22/21 01/15/22 Simi Coppola APRN.NUTS AND BOLTS ASSEMBLER [address] [place] [address] Pediatric Radiologist Family Medicine 08/30/24 09/24/24 Lyndsey Bryson APRN.NUTS AND BOLTS ASSEMBLER [address] [place] [address] Pediatric Radiologist Family Medicine 08/30/24 09/24/24 Disha Neumann PA-C [address] [place] [address] Pediatric Radiologist Family Medicine 08/30/24 09/24/24 Verna Jean APRN.NUTS AND BOLTS ASSEMBLER [address] [place] [address] Pediatric Radiologist Family Medicine 08/30/24 09/24/24 London Corey PA-C [address] [place] [address] [place] [address] Pediatric Radiologist Family [facility] 08/30/24 09/24/24 Bernadette Valenzuela APRN.NUTS AND BOLTS ASSEMBLER [address] [place] [address] Pediatric Radiologist 09/25/24 12/03/24 Bernadette Valenzuela APRN.NUTS AND BOLTS ASSEMBLER [address] [place] [address] Pediatric Radiologist Family [facility] 12/03/24 documented as of this encounter
--- OUTSIDE RECORDS SUMMARY | 2025-04-30 14:01 | XMS_ITS | Encounter Summary ---
Author Organization [facility] Address [address] [place] [address] Care Team Providers Care Remedy Developer Name Role Phone Stephenie Castellon MD Unavailable [phone] Herminia Macdonald MD Primary Care Provider Simi Coppola SEWER INSPECTOR.CUSTOMER SERVICE LEADER Unavailable Lyndsey Bryson SEWER INSPECTOR.CUSTOMER SERVICE LEADER Unavailable [phone] Disha Neumann PA-C Unavailable Verna Jean SEWER INSPECTOR.CUSTOMER SERVICE LEADER Unavailable London Corey PA-C Unavailable Bernadette Valenzuela SEWER INSPECTOR.CUSTOMER SERVICE LEADER Unavailable Bernadette Valenzuela SEWER INSPECTOR.CUSTOMER SERVICE LEADER Unavailable [phone] Source Comments In the event this information is protected by the Federal Confidentiality of Alcohol and Drug AbusePatient Records regulations: The Federal rules restrict any use of the information to criminally investigate or prosecute any alcohol or drug abuse patient.[facility] Reason for Visit * Reason Comments Radiology XR Encounter Details Date Type Department Care Team (Late st Contact Info) Description 09/08/2021 Radiology Radiology [address] [place], [place] [phone] Stacey Duarte, RT(R) Radiology XR Social History Tobacco Use Types Packs/Day Years [...] often do you attend chur ch or mandaen services? More than 4 times per year 10/07/2020 Do you belong to any clubs o r organizations such as mormonism groups, unions, fraternal or athletic groups, or school groups? No 10/07/2020 How often do you attend meet ings of the clubs or organizations you belong to? Never 10/07/2020 Are you , , di vorced, , never , or living with a partner? 10/07/2020 [facility] of Occupat ional Health - Occupational Stress [...] place to sleep or slept in a senior care (including now)? No 09/06/2021 Area Deprivation Index Answer Date Rom rded National Score (1-100), lower number is lower ri sk Not on file 08/29/2020 State Score (1-10), lower number is lower risk N ot on file 08/29/2020 Data from: https://www.neighborhoodatlas.medicine.[facility].edu/. Last address used for calculation Not on [...] have Coronavirus / COVID-19? No / Unsure 09/08/2021 11:04 AM EST documented as of this encounter Functional Status * Are you deaf or do you have serious difficulty hearing? Answer Date of Assessment Author No 10/06/2015 10:45 AM Disha Newton APRN.CUSTOMER SERVICE LEADER * Are you blind or do you have serious difficulty seeing, even when wearing glasses? Answer Date of Assessment Author No 10/06/2015 10:45 AM Disha Newton APRN.CUSTOMER SERVICE LEADER * Do you have serious difficulty walking or climbing stairs? Answer Date of Assessment Author No 10/06/2015 10:45 AM Disha Newton APRN.CUSTOMER SERVICE LEADER * Do you have difficulty dressing or bathing? Answer Date of Assessment Author No 10/06/2015 10:45 AM Disha Newton APRN.CUSTOMER SERVICE LEADER * Because of a physical, mental, or emotional condition, do you have difficulty doing errands alone such as visiting a doctor's office or shopping? Answer Date of Assessment Author No 10/06/2015 10:45 AM Disha Newton APRN.CUSTOMER SERVICE LEADER documented as of this encounter Mental Status * Because of a physical, mental, or emotional condition, do you have serious difficulty concentrating, remembering, or making decisions? Answer Entry Date Author No 10/06/2015 10:45 AM Disha Newton APRN.CUSTOMER SERVICE LEADER documented in this encounter Progress Notes * Stacey Duarte RT(R) - 09/08/2021 12:39 PM EST Radiology Service Progress Note PATIENT NAME: Juila Mitchell DATE OF SERVICE: September 08, 2021 TIME: 12:39 PM PATIENT IDENTITY VERIFICATION COMPLETED USING TWO (2) IDENTIFIERS: Name and Date of confirmedby patient verbally. FALL SCREENING: Has the patient had 2 falls in the last year or 1 fall with injury or currently using an Ambulatory Assistive Device (Walker, Cane, Wheelchair, Crutches, etc.)? No PATIENT GENDER DATA: Female. status: : No status: NO. PATIENT RELEVANT IMPLANT DATA REVIEWED: Not Applicable RADIOLOGY DEPARTMENT: General X-ray: Exam(s) Completed: Upper Extremity X- Ray(s): Hand, right PERIPHERAL IV DATA: Not applicable SIGNED BY: RT Maritza(R) September 08, 2021 12:39 PM documented in this encounter Plan of Treatment Not on file documented as of this encounter Visit Diagnoses Not on filedocumented in this encounter Care Teams Remedy Developer Relationship Specialty Start Date End Date Herminia Macdonald MD [address] [place] [address] PCP - General Family Medicine 09/08/21 Stephenie Castellon MD PCP Resident Family Medicine 03/22/21 01/15/22 Simi Coppola SEWER INSPECTOR.CUSTOMER SERVICE LEADER [address] [place] [address] Feller Machine Operator Family Medicine 08/30/24 09/24/24 Lyndsey Bryson APRN.CUSTOMER SERVICE LEADER [address] [place] [address] Feller Machine Operator Family Medicine 08/30/24 09/24/24 Disha Neumann PA-C [address] [place] [address] Feller Machine Operator Family Medicine 08/30/24 09/24/24 Verna Jean APRN.CUSTOMER SERVICE LEADER [address] [place] [address] Feller Machine Operator Family Medicine 08/30/24 09/24/24 London Corey PA-C [facility] [place] [address] Feller Machine Operator Family Medicine 08/30/24 09/24/24 Bernadette Valenzuela APRN.CUSTOMER SERVICE LEADER [address] [place] [address] Feller Machine Operator 09/25/24 12/03/24 Bernadette Valenzuela APRN.CUSTOMER SERVICE LEADER [address] [place] [address] Feller Machine Operator Family Medicine 12/03/24 documented as of this encounter
--- OUTSIDE RECORDS SUMMARY | 2025-04-30 14:01 | XMS_ITS | Encounter Summary ---
Author Organization [facility] Address [address] [place] [address] Care Team Providers Care B And B Gang Worker Name Role Phone Unallocated, Noms Provider Primary Care Provi dom Encounter Details Date Type Department Care Team (Late st Contact Info) Description 02/06/2023 Abstract MARCIO YOUNG [address] [facility] [address] [place] [address] Rebecca Workman DO [address] [facility] [place] [address] [place] [address] Social History Tobacco Use Types Packs/Day Years Used Date Smoking Tobacco: Never Smokeless Tobacco: Never Alcohol Use Standard Drinks/Week Comments Never 0 (1 standard drink = 0.6 oz pure alcohol) caffeine intake : 1-2 cups per day ; coffee Education Answer Date Recorded What is the [...] PM EDT Office Visit MARCIO YOUNG [address] [facility] [place] [address] [place] [id number] Rebecca Workman, [address] [address] documented as of this encounter Visit Diagnoses Not on filedocumented in this encounter Care Teams B And B Gang Worker Relationship Specialty Start Date End Date Unallocated, Noms Provider, [address] [place] [address] PCP - General 02/12/23 documented as of this encounter
--- OUTSIDE RECORDS SUMMARY | 2025-04-30 14:01 | XMS_ITS | Encounter Summary ---
Author Organization [facility] Address [facility] [place] [address] Care Team Providers Care Silk Spreader Name Role Phone Gracie Zavala MD Unavailable [phone] Rm Chavez MD Primary Care Provider [phone] Stephenie Castellon MD Unavailable Marques Márquez MD, Carl Primary Care Provider [phone] Herminia Macdonald MD Primary Care Provider Simi Coppola REEL HOOKER.AMBULANCE ATTENDANT Unavailable Lyndsey Bryson REEL HOOKER.AMBULANCE ATTENDANT Unavailable [phone] Disha Neumann PA-C Unavailable Verna Jean REEL HOOKER.AMBULANCE ATTENDANT Unavailable London Corey-C Unavailable Bernadette Valenzuela REEL HOOKER.AMBULANCE ATTENDANT Unavailable Bernadette Valenzuela REEL HOOKER.AMBULANCE ATTENDANT Unavailable [phone] Source Comments In the event this information is protected by the Federal Confidentiality of Alcohol and Drug AbusePatient Records regulations: The Federal rules restrict any use of the information to criminally investigate or prosecute any alcohol or drug abuse patient.[facility] Encounter Details Date Type Department Care Team (Late st Contact Info) Description 10/12/2020 Get Medical Advice Family Practice [address] [place] [id number] [place] [address] [place], [place] [phone] RE: FW: Non-Urgent Medical Question Social History Tobacco Use [...] any clubs o r organizations such as taoist groups, unions, fraternal or athletic groups, or school groups? No 10/07/2020 How often do you attend meet ings of the clubs or organizations you belong to? Never 10/07/2020 Are you , , di vorced, , never , or living with a partner? 10/07/2020 [facility] - Occupational [...] the mortgage or rent on time? No 10/07/2020 In the last 12 months, how many places have you lived? 1 10/07/2020 In the last 12 months, was t here a time when you did not have a steady place to sleep or slept in a prison (including now)? No 10/07/2020 Area Deprivation Index Answer Date Rom rded National Score (1-100), lower number is lower ri sk Not on file 08/29/2020 State Score (1-10), lower number is lower risk N ot on file 08/29/2020 Data from: https://www.neighborhoodatlas.medicine.[facility].edu/. Last address used for calculation Not [...] have Coronavirus / COVID-19? No / Unsure 10/06/2020 12:41 PM EST documented as of this encounter Functional Status * Are you deaf or do you have serious difficulty hearing? Answer Date of Assessment Author No 10/06/2015 10:45 AM Disha Newton APRN.AMBULANCE ATTENDANT * Are you blind or do you have serious difficulty seeing, even when wearing glasses? Answer Date of Assessment Author No 10/06/2015 10:45 AM Disha Newton APRN.AMBULANCE ATTENDANT * Do you have serious difficulty walking or climbing stairs? Answer Date of Assessment Author No 10/06/2015 10:45 AM Disha Newton APRN.AMBULANCE ATTENDANT * Do you have difficulty dressing or bathing? Answer Date of Assessment Author No 10/06/2015 10:45 AM Disha Newton APRN.AMBULANCE ATTENDANT * Because of a physical, mental, or emotional condition, do you have difficulty doing errands alone such as visiting a doctor's office or shopping? Answer Date of Assessment Author No 10/06/2015 10:45 AM Disha Newton APRN.AMBULANCE ATTENDANT documented as of this encounter Mental Status * Because of a physical, mental, or emotional condition, do you have serious difficulty concentrating, remembering, or making decisions? Answer Entry Date Author No 10/06/2015 10:45 AM Disha Newton APRN.AMBULANCE ATTENDANT documented in this encounter Plan of Treatment Not on file documented as of this encounter Visit Diagnoses Not on filedocumented in this encounter Care Teams Silk Spreader Relationship Specialty [place] [address] [place] [address] PCP - General Family Medicine 06/30/19 03/21/21 [place] [address] [place] [address] PCP - General Family Medicine 03/22/21 09/07/21 Herminia Macdonald MD [address] [place] [address] PCP - General Family Medicine 09/08/21 [place] [address] [place] [address] PCP Resident Family Medicine 06/30/19 03/22/21 [place] [address] [place] [address] PCP Resident Family Medicine 03/22/21 01/15/22 Simi Coppola APRN.AMBULANCE ATTENDANT [address] [place] [address] [employer] [facility] 08/30/24 09/24/24 Lyndsey Bryson, REEL HOOKER.AMBULANCE ATTENDANT [address] [place] [address] [employer] [facility] 08/30/24 09/24/24 Disha Neumann PA-C [address] [place] [address] [employer] [facility] 08/30/24 09/24/24 Verna Jean, ZIGGY.AMBULANCE ATTENDANT [address] [place] [address] [employer] [facility] 08/30/24 09/24/24 London Corey PA-C [address] [place] [address] [employer] [facility] 08/30/24 09/24/24 Bernadette Valenzuela, ZIGGY.AMBULANCE ATTENDANT [address] [place] [address] [employer] 09/25/24 12/03/24 Bernadette Valenzuela APRN.AMBULANCE ATTENDANT [address] [place] [address] [employer] [facility] 12/03/24 documented as of this encounter
--- OUTSIDE RECORDS SUMMARY | 2025-04-30 14:01 | XMS_ITS | Encounter Summary ---
Author Organization [facility] Address [facility] [place] [address] Care Team Providers Care Entry Level Electrician Name Role Phone Gracie Zavala MD Unavailable [phone] Rm Chavez MD Primary Care Provider [phone] Stephenie Castellon MD Unavailable Marques Márquez MD, Carl Primary Care Provider [phone] Herminia Macdonald MD Primary Care Provider Simi Coppola STOCK FITTER.SENIOR LINUX ADMINISTRATOR Unavailable Lyndsey Bryson STOCK FITTER.SENIOR LINUX ADMINISTRATOR Unavailable [phone] Disha Neumann PA-C Unavailable Verna Jean STOCK FITTER.SENIOR LINUX ADMINISTRATOR Unavailable London Corey-C Unavailable Bernadette Valenzuela STOCK FITTER.SENIOR LINUX ADMINISTRATOR Unavailable Bernadette Valenzuela STOCK FITTER.SENIOR LINUX ADMINISTRATOR Unavailable [phone] Source Comments In the event this information is protected by the Federal Confidentiality of Alcohol and Drug AbusePatient Records regulations: The Federal rules restrict any use of the information to criminally investigate or prosecute any alcohol or drug abuse patient.[facility] Encounter Details Date Type Department Care Team (Late st Contact Info) Description 05/08/2020 Get Medical Advice Family [facility] [address] [place] [address] [place] [address] [place], [place] [phone] Visit Follow Up Question Social History Tobacco Use Types Packs/Day [...] have Coronavirus / COVID-19? No / Unsure 05/09/2020 9:22 AM EDT documented as of this encounter Functional Status * Are you deaf or do you have serious difficulty hearing? Answer Date of Assessment Author No 10/06/2015 10:45 AM Disha Newton APRN.SENIOR LINUX ADMINISTRATOR * Are you blind or do you have serious difficulty seeing, even when wearing glasses? Answer Date of Assessment Author No 10/06/2015 10:45 AM Disha Newton APRN.SENIOR LINUX ADMINISTRATOR * Do you have serious difficulty walking or climbing stairs? Answer Date of Assessment Author No 10/06/2015 10:45 AM Disha Newton APRN.SENIOR LINUX ADMINISTRATOR * Do you have difficulty dressing or bathing? Answer Date of Assessment Author No 10/06/2015 10:45 AM Disha Newton APRN.SENIOR LINUX ADMINISTRATOR * Because of a physical, mental, or emotional condition, do you have difficulty doing errands alone such as visiting a doctor's office or shopping? Answer Date of Assessment Author No 10/06/2015 10:45 AM Disha Newton APRN.SENIOR LINUX ADMINISTRATOR documented as of this encounter Mental Status * Because of a physical, mental, or emotional condition, do you have serious difficulty concentrating, remembering, or making decisions? Answer Entry Date Author No 10/06/2015 10:45 AM Disha Newton APRN.SENIOR LINUX ADMINISTRATOR documented in this encounter Miscellaneous Notes * Telephone Encounter - Palmira Bradford - 05/09/2020 9:24 AM EDT I spoke with this patient and she is scheduled to come in on 05/10/2020 with Lucas Rojas. Thank you,Palmira Bradford documented in this encounter Plan of Treatment Not on file documented as of this encounter Visit Diagnoses Not on filedocumented in this encounter Care Teams Entry Level Electrician Relationship Specialty [place] [address] [place] [address] PCP - General Family Medicine 06/30/19 03/21/21 [place], [place] [id number] [place] [id number] PCP - General Family Medicine 03/22/21 09/07/21 Herminia Macdonald MD [address] [place] [address] PCP - General Family Medicine 09/08/21 Gracie Zavala MD [id number] [place] [address] PCP Resident Family Medicine 06/30/19 03/22/21 Stephenie Castellon [place] [id number] [place] [address] PCP Resident Family Medicine 03/22/21 01/15/22 Simi Coppola, STOCK FITTER.SENIOR LINUX ADMINISTRATOR [address] [place] [address] Press Technician Family Medicine 08/30/24 09/24/24 Lyndsey Bryson, STOCK FITTER.SENIOR LINUX ADMINISTRATOR [address] [place] [address] Press Technician Family Medicine 08/30/24 09/24/24 Disha Neumann PA-C [address] [place] [address] Press Technician Family Medicine 08/30/24 09/24/24 Verna Jean, STOCK FITTER.SENIOR LINUX ADMINISTRATOR [address] [place] [address] Press Technician Family Medicine 08/30/24 09/24/24 London Corey PA-C [address] [place] [address] Press Technician Family Medicine 08/30/24 09/24/24 Bernadette Valenzuela, STOCK FITTER.SENIOR LINUX ADMINISTRATOR [address] [place] [address] Press Technician 09/25/24 12/03/24 Bernadette Valenzuela, ZIGGY.SENIOR LINUX ADMINISTRATOR [address] [place] [address] Press Technician Family Medicine 12/03/24 documented as of this encounter
--- OUTSIDE RECORDS SUMMARY | 2025-04-30 14:01 | XMS_ITS | Encounter Summary ---
Author Organization [facility] Address [facility] [place] [address] Care Team Providers Care Behavioral Health Specialist Name Role Phone Gracie Zavala MD Unavailable [phone] Rm Chavez MD Primary Care Provider [phone] Stephenie Castellon MD Unavailable Marques Márquez MD, Carl Primary Care Provider [phone] Herminia Macdonald MD Primary Care Provider Simi Coppola DAUB COLOR MIXER.PLANT DIRECTOR Unavailable Lyndsey Bryson DAUB COLOR MIXER.PLANT DIRECTOR Unavailable [phone] Disha Neumann PA-C Unavailable Verna Jean DAUB COLOR MIXER.PLANT DIRECTOR Unavailable London Corey-C Unavailable Bernadette Valenzuela DAUB COLOR MIXER.PLANT DIRECTOR Unavailable Bernadette Valenzuela DAUB COLOR MIXER.PLANT DIRECTOR Unavailable [phone] Source Comments In the event this information is protected by the Federal Confidentiality of Alcohol and Drug AbusePatient Records regulations: The Federal rules restrict any use of the information to criminally investigate or prosecute any alcohol or drug abuse patient.[facility] Encounter Details Date Type Department Care Team (Late st Contact Info) Description 02/06/2021 Patient Msg Family Practice [address] [place] [phone] [place] [address] [place], [place] [phone] RE:Lab results Social History Tobacco Use Types Packs/Day Years [...] often do you attend chur ch or muslim services? More than 4 times per year 10/07/2020 Do you belong to any clubs o r organizations such as latter-day groups, unions, fraternal or athletic groups, or school groups? No 10/07/2020 How often do you attend meet ings of the clubs or organizations you belong to? Never 10/07/2020 Are you , , di vorced, , never , or living with a partner? 10/07/2020 [facility] - Occupational [...] in a care home (including now)? No 10/07/2020 Area Deprivation Index Answer Date Rom rded National Score (1-100), lower number is lower ri sk Not on file 08/29/2020 State Score (1-10), lower number is lower risk N ot on file 08/29/2020 Data from: https://www.neighborhoodatlas.medicine.[facility].edu/. Last address used for calculation Not [...] have Coronavirus / COVID-19? No / Unsure 02/02/2021 2:50 PM EDT documented as of this encounter Functional Status * Are you deaf or do you have serious difficulty hearing? Answer Date of Assessment Author No 10/06/2015 10:45 AM Disha Newton APRN.PLANT DIRECTOR * Are you blind or do you have serious difficulty seeing, even when wearing glasses? Answer Date of Assessment Author No 10/06/2015 10:45 AM Disha Newton APRN.PLANT DIRECTOR * Do you have serious difficulty walking or climbing stairs? Answer Date of Assessment Author No 10/06/2015 10:45 AM Disha Newton APRN.PLANT DIRECTOR * Do you have difficulty dressing or bathing? Answer Date of Assessment Author No 10/06/2015 10:45 AM Disha Newton APRN.PLANT DIRECTOR * Because of a physical, mental, or emotional condition, do you have difficulty doing errands alone such as visiting a doctor's office or shopping? Answer Date of Assessment Author No 10/06/2015 10:45 AM Disha Newton APRN.PLANT DIRECTOR documented as of this encounter Mental Status * Because of a physical, mental, or emotional condition, do you have serious difficulty concentrating, remembering, or making decisions? Answer Entry Date Author No 10/06/2015 10:45 AM Disha Newton APRN.PLANT DIRECTOR documented in this encounter Plan of Treatment Not on file documented as of this encounter Visit Diagnoses Not on filedocumented in this encounter Care Teams Behavioral Health Specialist Relationship Specialty [place] [address] [place] [address] PCP - General Family Medicine 06/30/19 03/21/21 [place] [address] [place] [address] PCP - General Family Medicine 03/22/21 09/07/21 Herminia Macdonald MD [address] [place] [address] PCP - General Family Medicine 09/08/21 [place] [address] [place] [address] PCP Resident Family Medicine 06/30/19 03/22/21 [place] [address] [place] [address] PCP Resident Family Medicine 03/22/21 01/15/22 Simi Coppola APRN.PLANT DIRECTOR [address] [place] [address] Director Software Development Family Medicine 08/30/24 09/24/24 Lyndsey Bryson, DAUB COLOR MIXER.PLANT DIRECTOR [address] [place] [address] Director Software Development Family Medicine 08/30/24 09/24/24 Disha Neumann PA-C [address] [place] [address] Director Software Development Family [facility] 08/30/24 09/24/24 Verna Jean, DAUB COLOR MIXER.PLANT DIRECTOR [address] [place] [address] Director Software Development Family Medicine 08/30/24 09/24/24 London Corey PA-C [address] [place] [address] Director Software Development Family [facility] 08/30/24 09/24/24 Bernadette Valenzuela, ZIGGY.PLANT DIRECTOR [address] [place] [address] Director Software Development 09/25/24 12/03/24 Bernadette Valenzuela APRN.PLANT DIRECTOR [address] [place] [address] Director Software Development Family [facility] 12/03/24 documented as of this encounter
--- NOTE | 2025-04-30 14:02 | XR_ITS ---
The [address] [address] Patient Name: SCOTT BERMUDEZ MRN: [id number] date: 1995 Sex: F Assigned Patient Location: ER Current Patient Location: ED.MAIN Accession/Order Number: [id number] Exam Date: 04/30/2025 14:30 Report Date: 04/30/2025 14:32 At the request of: ZE FERNANDEZ Procedure: XR foot RT min 3V RIGHT ANKLE - 3 views, right foot 3 views CLINICAL HISTORY: Acute great toe pain and bruising after injury last night COMPARISON: None FINDINGS: Right ankle demonstrates no focal soft tissue abnormality or acute bony process. Ankle mortise appears intact. Right foot demonstrates no focal soft tissue abnormality. There appears to be a minimally displaced fracture involving the base of the distal phalanx of the first digit. Plantar spurring. XR/XR foot RT min 3V IMPRESSION: MINIMALLY DISPLACED FRACTURE INVOLVING THE BASE OF THE DISTAL PHALANX OF THE FIRST DIGIT. Impression dictated by: Gary Bautista Jr., D.O. 04/30/2025 2:32 PM Dictation Location: [place] [address] Electronically authenticated by: [id number] Y Date: 04/30/2025 14:32
--- NOTE | 2025-04-30 14:02 | XR_ITS ---
The [address] [address] Patient Name: SCOTT BERMUDEZ MRN: [id number] date: 1995 Sex: F Assigned Patient Location: ER Current Patient Location: ED.MAIN Accession/Order Number: [id number] Exam Date: 04/30/2025 14:30 Report Date: 04/30/2025 14:32 At the request of: ZE FERNANDEZ Procedure: XR foot RT min 3V RIGHT ANKLE - 3 views, right foot 3 views CLINICAL HISTORY: Acute great toe pain and bruising after injury last night COMPARISON: None FINDINGS: Right ankle demonstrates no focal soft tissue abnormality or acute bony process. Ankle mortise appears intact. Right foot demonstrates no focal soft tissue abnormality. There appears to be a minimally displaced fracture involving the base of the distal phalanx of the first digit. Plantar spurring. XR/XR ankle RT min 3V IMPRESSION: MINIMALLY DISPLACED FRACTURE INVOLVING THE BASE OF THE DISTAL PHALANX OF THE FIRST DIGIT. Impression dictated by: Gary Bautista Jr., D.O. 04/30/2025 2:32 PM Dictation Location: [place] [address] Electronically authenticated by: [id number] Y Date: 04/30/2025 14:32
--- NOTE | 2025-04-30 14:04 | ED_ITS ---
HPI HPI - General Adult General Chief complaint: Extremity Injury, Lower Stated complaint: LOWER EXTREMITY INJURY Time Seen by Provider: 04/30/25 13:55 Source: patient Mode of arrival: walk-in Limitations: no limitations History of Present Illness HPI narrative: 5 pound plate at the gym on foot has right foot first toe and inner portion of foot pain and bruising. Patient states worse with touch or motion. Denies any additional injuries denies any fever, chills, nausea, vomiting denies any blood thinner use. Symptoms mild to moderate severity Onset (ago): day(s) Location: Reports lower extremity Radiation: Reports extremity Related Data Allergies Allergy/AdvReac Type Severity Reaction Status Date / Time cefaclor (From [facility]) Allergy Severe Vomiting Verified 04/30/25 13:57 Opioid HPI Opioid Management Most Recent Opioid Data: Last Pain Scale 7 Today, 13:57 Review of Systems ROS Constitutional Denies: fever or chills Respiratory Denies: cough Gastrointestinal Denies: nausea or vomiting Genitourinary Denies: blood in urine Musculoskeletal Reports: extremity pain, joint pain and joint swelling PFSH PFSH Social History Little interest or pleasure in doing things: not at all Feeling down, depressed, or hopeless: not at all Exam Constitutional Vital Signs, click to edit/add: Last Vital Signs Temp 99.1 F 04/30/25 13:57 Pulse 69 04/30/25 13:57 Resp 16 04/30/25 13:57 BP 115/61 04/30/25 13:57 Pulse Ox 98 04/30/25 13:57 O2 Del Method Room Air 04/30/25 13:57 HENMT Common normals: normocephalic and hearing grossly normal bilaterally Eye Common normals: PERRL and EOMs intact bilaterally Neck & C-Spine Common normals: full ROM and supple Respiratory Common normals: normal respiratory effort and clear to auscultation bilaterally Cardio Common normals: regular rate, regular rhythm, S1 normal heart sound and S2 normal heart sound GI Common normals: Normal to inspection, nondistended, normoactive bowel sounds present Extremity Right lower extremity: ankle joint (Slight tenderness overlying medial malleolus.) and foot and digits (Over first ray including phalanx met in tarsals) Right foot and digits: neurovascular exam (Retains sensation muscle distally to injury) Neuro Common normals: oriented x3, moves all extremities and no sensory deficits noted Psych Common normals: mental status grossly normal and thought process normal Course Vital Signs Vital signs: Vital Signs Temperature 99.1 F 04/30/25 13:57 Pulse Rate 69 04/30/25 13:57 Respiratory Rate 16 04/30/25 13:57 Blood Pressure 115/61 04/30/25 13:57 Pulse Oximetry 98 04/30/25 13:57 Oxygen Delivery Method Room Air 04/30/25 13:57 Temperature 99.1 F 04/30/25 13:57 Pulse Rate 69 04/30/25 13:57 Respiratory Rate 16 04/30/25 13:57 Blood Pressure 115/61 04/30/25 13:57 Pulse Oximetry 98 04/30/25 13:57 Oxygen Delivery Method Room Air 04/30/25 13:57 Medical Decision Making MDM Narrative Medical decision making narrative: Foot injury. Has bruising and tenderness overlying medial portion of foot and medial malleolus will add x-rays include right foot right ankle. Patient is agreeable to plan of care. Differential Diagnosis Differential Diagnosis: Includes but not limited to fracture, sprain, contusion Discharge Plan Discharge Stand Alone Forms: Work/School Release Chief Complaint: Extremity Injury, Lower Clinical Impression: Fracture of toe Qualifiers: Encounter type: initial encounter Toe: great toe Fracture type: closed Contusion of foot Qualifiers: Encounter type: initial encounter Laterality: right Qualified Code(s): S90.31XA - Contusion of right foot, initial encounter Patient Disposition: Home, Self-Care Time of Disposition Decision: 14:30 Condition: Good Mode of Transportation: Private Vehicle Print Language: Ugandan Instructions: Foot Fracture in Adults (ED), Post Surgical Shoe (ED) Additional Instructions: Follow-up with orthopedics or podiatry. Return to ER if any symptoms worsen or new symptoms develop. Work as able with postop shoe continuously in place. Use Tylenol and ibuprofen as directed on packaging for pain or discomfort. Referrals: LOKESH HERNANDEZ [Primary Care Provider, Family Practice] - 1 week Kunal Stratton DPM [Physician, Podiatry] - As soon as possible
== END 2025-04-30 14:51 | disposition home or self-care (01) ==
PROVIDERS: Emergency Provider Emergency Medicine; PCP Family Medicine
DX: S92.421A Displaced fracture of distal phalanx of right great toe, initial encounter for closed fracture (principal); W20.8XXA Other cause of strike by thrown, projected or falling object, initial encounter; S90.31XA Contusion of right foot, initial encounter
CPT/HCPCS: 73610; 73630; 99283